=== PATIENT | female | born 1985 | race Caucasian/White ===

== ENCOUNTER 2016-11-21 11:20 | Emergency (ER) | payer MEDICAID, OTHER ==
[~2016-11-21] VITALS: Ht 154.9 cm; Wt 66.0 kg
[~2016-11-21 11:20] MED LIST: LORTA5 PO; MIREIUD IU
--- NOTE | 2016-11-21 11:29 | PD ---
Physical Exam Time Seen by Provider: 11:28 Narrative 31 y/o female here with sharp LUQ/L back pain since 3 AM this morning. Denies dysuria, hematuria, fevers/chills. she does endorse nausea. Vital signs reviewed. Seen at triage desk. Awaiting bed placement. Data Data Last Documented VS Vital Signs Date Time Temp Pulse Resp B/P Pulse Ox O2 Delivery O2 Flow Rate FiO2 11/21/16 11:30 99.2 130 20 129/78 96 Room Air [facility] Medical Record Reviewed: Yes Supervised Visit with MITRA: Davion Grey November 21, 2016 11:29
[2016-11-21 11:30] VITALS: BP 129/78; PULSE 130; RESP 20; TEMP 99.2; O2SAT 96
[2016-11-21] MEDS ORDERED: ZOFR4TAB PO (11:43)
[2016-11-21] MEDS ORDERED: VITA10004 PO (11:43)
[2016-11-21] MEDS ORDERED: SODIUM CHLOR 0.9% 1000 ML INJ 1,000 ML IV SCH (12:14)
[2016-11-21] MEDS ORDERED: ALUMINUM/MAGNESIUM/SIMETH 30 ML CUP PO ONE (12:15)
[2016-11-21] MEDS ORDERED: LIDOCAINE VISCOUS 2% SOLN 15 ML UDC PO ONE (12:15)
[2016-11-21] MEDS ORDERED: SODIUM CHLORIDE 0.9% FLUSH 10 ML FLUSH IV FLUSH PRN (12:15)
[2016-11-21] MEDS ORDERED: ACETAMINOPHEN 325 MG TAB PO ONE (12:15)
[2016-11-21] MEDS ORDERED: ONDANSETRON HCL 4 MG/2 ML VIAL IV ONE (12:15)
[2016-11-21 12:41] LABS: AUTOMATED NEUTROPHIL # 8.7 TH/MM3 (1.8-7.7); BASOPHIL % 0.1 % (0.0-2.0); EOSINOPHIL % 0.1 % (0.0-4.0); HEMATOCRIT 44.5 % (35.0-46.0); HEMO FLAGS DIFF FINAL; LYMPH % 5.7 % (9.0-44.0); LYMPHOCYTE # 0.6 TH/MM3 (1.0-4.8); MEAN CELL VOLUME 88.3 FL (80.0-100.0); MEAN CORPUSCULAR HEMOGLOBIN 30.5 PG (27.0-34.0); MEAN CORPUSCULAR HGB CONC 34.5 % (32.0-36.0); NEUT % 89.1 % (16.0-70.0); PLATELET COUNT 166 TH/MM3 (150-450); RED BLOOD COUNT 5.05 MIL/MM3 (4.00-5.30); RED CELL DISTRIBUTION WIDTH 13.1 % (11.6-17.2); WHITE BLOOD COUNT 9.8 TH/MM3 (4.0-11.0)
[2016-11-21 12:53] LABS: BACTERIA, URINE RARE /hpf; BLOOD, URINE NEG (NEG); COMMENT (UR) CULT NOT INDICATED; CULTURE IF INDICATED CULT NOT INDICATED; GLUCOSE,URINE NEG (NEG); KETONE, URINE NEG (NEG); MUCUS URINE FEW /lpf (OCC); NITRITE,URINE NEG (NEG); PH, URINE 5.5 (5.0-8.5); SQUAMOUS EPITHELIAL CELL URINE 17 /hpf (0-5); URINE COLOR YELLOW (YELLW/STRAW)
[2016-11-21 12:59] LABS: ANION GAP 8 MEQ/L (5-15); AST (GOT) 20 U/L (15-37); BICARBONATE 24.4 MEQ/L (21.0-32.0); BLOOD UREA NITROGEN 9 MG/DL (7-18); CHLORIDE 105 MEQ/L (98-107); GLOMERULAR FILTRATION RATE 107 ML/MIN (>89); SODIUM (NA) 137 MEQ/L (136-145)
[2016-11-21 13:02] LABS: ALKALINE PHOSPHATASE 70 U/L (45-117); ALT (GPT) 44 U/L (10-53); TOTAL BILIRUBIN ADULT 0.8 MG/DL (0.2-1.0)
[2016-11-21] MEDS ORDERED: RANI150C PO (13:18)
[2016-11-21] MEDS ORDERED: ZOFR4TAB3 SL (13:18)
--- NOTE | 2016-11-21 13:18 | PD ---
HPI Chief Complaint: Abdominal Pain Time Seen by Provider: 12:04 Travel History International Travel<30 days: No Contact w/Intl Traveler<30days: No Traveled to known affect area: No History of Present Illness HPI Is a 31-year-old woman who presents to the emergency department complaining of left upper quadrant abdominal pain. Started past day or so. So she was some nausea and vomiting. Feels like when she had gallbladder pain before. She had cholecystectomy done about 2 years ago. She is not really had trouble with abdominal pain since then. She otherwise has been feeling generally well and healthy. History Past Medical History Narrative Medical History cholecystectomy Tetanus Vaccination: Unknown Influenza Vaccination: No LMP: [place] Menopausal: No : 2 Para: 1 Social History Alcohol Use: No Tobacco Use: Yes (5 CIG PER DAY ) Allergies-Medications (Allergen,Severity, Reaction): Coded Allergies: No Known Allergies (Verified , 11/21/16) Reported Meds & Prescriptions Reported Meds & Active Scripts Active Reported Vitamin B-12 Cr (Cyanocobalamin) 1,000 Mcg Tab 1,000 Mcg PO DAILY Zofran (Ondansetron HCl) 4 Mg Tab 4 Mg PO Q6HR PRN Mirena (Levonorgestrel (Iud)) Iud 1 IU Review of Systems Except as stated in HPI: all other systems reviewed are Neg Physical Exam Narrative GENERAL: Well-appearing 30 year-old woman, no acute distress. SKIN: Focused skin assessment warm/dry. HEAD: Atraumatic. Normocephalic. EYES: Pupils equal and round. No scleral icterus. No injection or drainage. ENT: No nasal bleeding or discharge. Mucous membranes pink and moist. NECK: Trachea midline. No JVD. CARDIOVASCULAR: Regular rate and rhythm. No murmur appreciated. RESPIRATORY: No accessory muscle use. Clear to auscultation. Breath sounds equal bilaterally. GASTROINTESTINAL: Mild epigastric tenderness. No rebound or guarding. MUSCULOSKELETAL: No obvious deformities. No clubbing. No cyanosis. No edema. NEUROLOGICAL: Awake and alert. No obvious cranial nerve deficits. Motor grossly within normal limits. Normal speech. PSYCHIATRIC: Appropriate mood and affect; insight and judgment normal. Data Data Last Documented VS Vital Signs Date Time Temp Pulse Resp B/P Pulse Ox O2 Delivery O2 Flow Rate FiO2 11/21/16 11:30 99.2 130 20 129/78 96 Room Air Orders Complete Blood Count With Diff (11/21/16 12:05) Comprehensive Metabolic Panel (11/21/16 12:05) Lipase (11/21/16 12:05) Urinalysis - C+S If Indicated (11/21/16 12:05) Iv Access Insert/Monitor (11/21/16 12:05) Sodium Chloride 0.9% Flush (Ns Flush) (11/21/16 12:15) Ed Urine Pregnancytest Poc (11/21/16 12:05) Ondansetron Inj (Zofran Inj) (11/21/16 12:15) Sodium Chlor 0.9% 1000 Ml Inj (Ns 1000 M (11/21/16 12:14) Al-Mag Hy-Si 40-40-4 Mg/Ml Liq (Mag-Al P (11/21/16 12:15) Lidocaine 2% Viscous (Xylocaine 2% Visco (11/21/16 12:15) Acetaminophen (Tylenol) (11/21/16 12:15) Labs Laboratory Tests Test 11/21/16 11/21/16 11:35 11:44 White Blood Count 9.8 TH/MM3 Red Blood Count 5.05 MIL/MM3 Hemoglobin 15.4 GM/DL Hematocrit 44.5 % Mean Corpuscular Volume 88.3 FL Mean Corpuscular Hemoglobin 30.5 PG Mean Corpuscular Hemoglobin 34.5 % Concent Red Cell Distribution Width 13.1 % Platelet Count 166 TH/MM3 Mean Platelet Volume 9.4 FL Neutrophils (%) (Auto) 89.1 % Lymphocytes (%) (Auto) 5.7 % Monocytes (%) (Auto) 5.0 % Eosinophils (%) (Auto) 0.1 % Basophils (%) (Auto) 0.1 % Neutrophils # (Auto) 8.7 TH/MM3 Lymphocytes # (Auto) 0.6 TH/MM3 Monocytes # (Auto) 0.5 TH/MM3 Eosinophils # (Auto) 0.0 TH/MM3 Basophils # (Auto) 0.0 TH/MM3 CBC Comment DIFF FINAL Differential Comment Sodium Level 137 MEQ/L Potassium Level 4.0 MEQ/L Chloride Level 105 MEQ/L Carbon Dioxide Level 24.4 MEQ/L Anion Gap 8 MEQ/L Blood Urea Nitrogen 9 MG/DL Creatinine 0.64 MG/DL Estimat Glomerular Filtration 107 ML/MIN Rate Random Glucose 98 MG/DL Calcium Level 8.9 MG/DL Total Bilirubin 0.8 MG/DL Aspartate Amino Transf 20 U/L (AST/SGOT) Alanine Aminotransferase 44 U/L (ALT/SGPT) Alkaline Phosphatase 70 U/L Total Protein 7.5 GM/DL Albumin 4.0 GM/DL Lipase 114 U/L Urine Color YELLOW Urine Turbidity HAZY Urine pH 5.5 Urine Specific [place] 1.020 Urine Protein NEG mg/dL Urine Glucose (UA) NEG mg/dL Urine Ketones NEG mg/dL Urine Occult Blood NEG Urine Nitrite NEG Urine Bilirubin NEG Urine Urobilinogen LESS THAN 2.0 MG/DL Urine Leukocyte Esterase LARGE Urine RBC 3 /hpf Urine WBC 4 /hpf Urine Squamous Epithelial 17 /hpf Cells Urine Bacteria RARE /hpf Urine Mucus FEW /lpf Microscopic Urinalysis Comment CULT NOT INDICATED MDM Medical Decision Making Medical Screen Exam Complete: Yes Emergency Medical Condition: Yes Interpretation(s) LABS: CBC is unremarkable. CMP is unremarkable. Lipase is normal. UA unremarkable. Differential Diagnosis Gastritis, pancreatitis, leg issues, other Narrative Course Medical decision making Well 31-year-old with epigastric left upper quadrant abdominal pain. Likely gastritis. She looks well. Benign exam. She has had gallbladder disease in the past. Labs unremarkable. Recommend supportive treatment. Diagnosis Primary Impression: Abdominal pain, RUQ Patient Instructions: General Instructions Additional Instructions: Take ranitidine as prescribed. Use Zofran if needed for nausea or vomiting. Follow up with her primary doctor in the next 2-4 days. Return to the emergency department for any new or worsening symptoms. Med/Other Pt SpecificInfo: Prescription(s) given Scripts Ondansetron Odt (Zofran Odt)4 Mg Tab4 Mg SL Q8HR PRN (Nausea/Vomiting) #15 TAB May substitute non-ODT form. Prov:Aden Wells MD 11/21/16 Ranitidine 150 Mg [id number] Mg PO BID #60 CAP Prov:Aden Wells MD 11/21/16 Disposition: 01 DISCHARGE HOME Condition: Stable Aden Wells MD November 21, 2016 13:18
== END 2016-11-21 13:46 | disposition home or self-care (01) ==
LOC: NEPD 11:20
DX: R10.11 Right upper quadrant pain (principal); R11.2 Nausea with vomiting, unspecified; F17.210 Nicotine dependence, cigarettes, uncomplicated; Z97.5 Presence of (intrauterine) contraceptive device
CPT/HCPCS: 80053; 81001; 83690; 84703; 85025; 96374; 99284; J2405; J7030